=== PATIENT | male | born 1980 | race Caucasian/White ===

== ENCOUNTER 2022-12-21 22:30 | Outpatient (REF) | payer SELFPAY ==
[2022-12-21 22:32] VITALS: BP 161/99; PULSE 78; RESP 18; TEMP 36.3; O2SAT 98; BMI 19.8
--- NOTE | 2022-12-21 22:35 | ED.RN ---
Pt arrives screaming and yelling, uncooperative. pt arrives in handcuffs with PD at bedside. Pt refuses to let staff clean wounds.
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
--- NOTE | 2022-12-21 22:50 | ED.RN ---
This RN escorts patient to CT with 2 [employer] officers. Pt continues yelling and screaming and being uncooperative. Pt was assisted on CT bed and refused to lie still, patients head was help by CT staff for accurate imaging. Pt remains in handcuffs the entire time.
--- NOTE | 2022-12-21 22:55 | RAD_ITS ---
INDICATION: trauma EXAMINATION: Frontal view of the chest COMPARISON: None. FINDINGS: Frontal view of the chest was obtained. The cardiac silhouette is not enlarged. No confluent airspace disease. No pneumothorax. Age-indeterminate fractures of the left posterolateral sixth, seventh, eighth and ninth ribs. RAD/Chest 1 View (Portable) IMPRESSION: Age-indeterminate fractures of multiple left-sided ribs. Electronically Signed: Michael Hebert MD at 23:45 EDT ,
[2022-12-21] MEDS: Diphth,Pertuss(Acell),Tet Vac 0.5 ML Vial IM (23:02)
--- NOTE | 2022-12-22 00:11 | ED.RN ---
Pt given discharge instructions, paperwork given to PD. Pt escorted out with PD and taken to [facility].
== END 2022-12-22 00:18 ==
LOC: ED 22:30
PROVIDERS: Visit Provider Emergency Medicine
DX: S00.81XA Abrasion of other part of head, initial encounter (principal); S80.02XA Contusion of left knee, initial encounter; S80.01XA Contusion of right knee, initial encounter; W19.XXXA Unspecified fall, initial encounter; Y09 Assault by unspecified means; F17.210 Nicotine dependence, cigarettes, uncomplicated; F10.10 Alcohol abuse, uncomplicated; Y90.9 Presence of alcohol in blood, level not specified
CPT/HCPCS: 70450; 71045; 72125; 90715